=== PATIENT | male | born 1995 | race American Indian/Alaskan Native ===

== ENCOUNTER 2017-04-17 13:46 | Emergency (ER) | payer OTHER ==
[2017-04-17 15:04] VITALS: BP 112/93
--- NOTE | 2017-04-17 17:37 | XRay Report ---
FINAL REPORT PROCEDURE: XR KNEE 3V LT TECHNIQUE: Left knee, three views HISTORY: left knee injury COMPARISON: No prior studies are available for comparison. FINDINGS: On two views there is a 3 millimeter osseous density projecting over the medial aspect of the intercondylar notch, of uncertain chronicity. This may be an intra-articular body. No donor site is visible to suggest acute fracture fragment. No joint effusion. No evidence of joint dislocation IMPRESSION: 3 millimeter osseous density, described above may be related to a small intra-articular body. If there is concern for internal derangement, follow-up MRI could be obtained.
[2017-04-17] MEDS ORDERED: MOTRIN PO ONE (18:35)
[2017-04-17] MEDS ORDERED: MOTRIN ONE (18:36)
[2017-04-17] MEDS ORDERED: ZOFRAN ODT PO ONE (19:48)
[2017-04-17] MEDS ORDERED: ZOFRAN ODT ONE (19:50)
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
== END 2017-04-17 20:48 | disposition home or self-care (01) ==
LOC: ED 13:46
DX: S80.02XA Contusion of left knee, initial encounter (principal); J45.909 Unspecified asthma, uncomplicated; Z88.6 Allergy status to analgesic agent; Z88.8 Allergy status to other drugs, medicaments and biological substances; V43.52XA Car driver injured in collision with other type car in traffic accident, initial encounter; Y93.89 Activity, other specified; Y92.89 Other specified places as the place of occurrence of the external cause; Y99.8 Other external cause status
CPT/HCPCS: Q0162

== ENCOUNTER 2017-12-12 12:14 | Emergency (ER) | payer SELFPAY ==
[2017-12-12 12:24] VITALS: BP 128/74
--- NOTE | 2017-12-12 13:35 | Emergency Department Report ---
ED Lower Extremity HPI - General Chief Complaint: Extremity Injury, Lower Stated Complaint: KNEE PAIN Time Seen by Provider: 12/12/17 12:57 Source: patient Mode of arrival: Ambulatory Limitations: No Limitations - History of Present Illness Initial Comments: This is a 22-year-old male nontoxic, well nourished in appearance, no acute signs of distress presents to the ED with c/o of left knee pain x1 day. Patient stated that he was playing basketball and heard a pop sensation x2 of the knee. Patient stated has a history of similar episode and had an MRI done with a strain on meniscus. Patient currently is wearing a knee immobilizer and has crutches from previous injury. Patient denies any direct trauma or blows. Patient stated that he did not have any trauma to the head or any other extremities. Patient denies any joint redness, joint swelling, fever, chills, nausea, vomiting, chest pain or shortness breath. Patient denies abnormal or decreased gait. Patient stated allergies to percocet. Denies PMH. MD Complaint: knee injury -: days(s) (1) Injury: Knee: Left Place: street/outdoors Severity: mild Severity scale (0 -10): 8 Improves With: immobilization Worsens With: movement, palpation Associated Symptoms: swelling, able to partially bear weight, ambulatory. denies: snap/pop sensation, numbness, tingling, unable to bear weight - Related Data Previous Rx's Medication Instructions Recorded Last Taken Type Ibuprofen [Motrin] 800 mg PO Q8HR PRN #15 tablet 04/25/16 Unknown Rx Ibuprofen [Motrin 800 MG tab] 800 mg PO Q8H PRN #20 tablet 04/17/17 Unknown Rx Ibuprofen [Motrin] 600 mg PO Q8H PRN #30 tablet 12/12/17 Unknown Rx Allergies Allergy/AdvReac Type Severity Reaction Status Date / Time acetaminophen [From Tylenol] Allergy Itching Verified 06/20/14 14:08 codeine Allergy Itching Verified 06/20/14 14:08 ED Review of Systems ROS: Stated complaint: KNEE PAIN Other details as noted in HPI Constitutional: denies: chills, fever Eyes: denies: eye pain, eye discharge, vision change ENT: denies: ear pain, throat pain Respiratory: denies: cough, shortness of breath, wheezing Cardiovascular: denies: chest pain, palpitations Endocrine: no symptoms reported Gastrointestinal: denies: abdominal pain, nausea, diarrhea Genitourinary: denies: urgency, dysuria Musculoskeletal: arthralgia. denies: back pain, joint swelling Skin: denies: rash, lesions Neurological: denies: headache, weakness, paresthesias Psychiatric: denies: anxiety, depression Hematological/Lymphatic: denies: easy bleeding, easy bruising ED Past Medical Hx - Past Medical History Previous Medical History?: Yes Hx Asthma: Yes - Surgical History Past Surgical History?: No - Social History Smoking Status: Never Smoker Substance Use Type: None - Medications Home Medications: Home Medications Medication Instructions Recorded Confirmed Last Taken Type Ibuprofen [Motrin] 800 mg PO Q8HR PRN #15 tablet 04/25/16 Unknown Rx Ibuprofen [Motrin 800 MG tab] 800 mg PO Q8H PRN #20 tablet 04/17/17 Unknown Rx Ibuprofen [Motrin] 600 mg PO Q8H PRN #30 tablet 12/12/17 Unknown Rx ED Physical Exam - General Limitations: No Limitations General appearance: alert, in no apparent distress - Head Head exam: Present: atraumatic, normocephalic - Eye Eye exam: Present: normal appearance Pupils: Present: normal accommodation - ENT ENT exam: Present: normal exam, mucous membranes moist - Neck Neck exam: Present: normal inspection, full ROM - Respiratory Respiratory exam: Present: normal lung sounds bilaterally. Absent: respiratory distress - Cardiovascular Cardiovascular Exam: Present: regular rate, normal rhythm, normal heart sounds. Absent: systolic murmur, diastolic murmur, rubs, gallop - GI/Abdominal GI/Abdominal exam: Present: soft, normal bowel sounds - Rectal Rectal exam: Present: deferred - Extremities Exam Extremities exam: Present: normal inspection, full ROM, tenderness, normal capillary refill. Absent: pedal edema, joint swelling, calf tenderness - Expanded Lower Extremity Exam Left Hip exam: Present: normal inspection, full ROM Upper Leg exam: Present: normal inspection, full ROM Knee exam: Present: normal inspection, full ROM, tenderness, swelling, effusion , full knee extension. Absent: abrasion, laceration, ecchymosis, deformity, crepidus, dislocation, erythema, pain w/ pronation/supination, posterior draw sign, pain/laxity with valgus, pain/laxity with varus Lower Leg exam: Present: normal inspection, full ROM. Absent: tenderness, swelling, abrasion, laceration, ecchymosis, deformity, crepidus, dislocation, erythema, palpable cord, Janelle's sign Ankle exam: Present: normal inspection, full ROM Foot/Toe exam: Present: normal inspection, full ROM Neuro vascular tendon exam: Present: no vascular compromise. Absent: pulse deficit, abnormal cap refill, motor deficit, sensory deficit, tendon deficit, extremity cold to touch, pallor, abnormal 2-point discrimination, decreased fine /light touch, foot drop, peroneal nerve deficit, significant pain with passive ROM of distal joint Gait: Positive: observed and limited by pain - Back Exam Back exam: Present: normal inspection, full ROM - Neurological Exam Neurological exam: Present: alert, oriented X3, normal gait - Psychiatric Psychiatric exam: Present: normal affect, normal mood - Skin Skin exam: Present: warm, dry, intact, normal color. Absent: rash ED Course Vital Signs 12/12/17 12:19 Temperature 98.0 F Pulse Rate 84 Respiratory 18 Rate Blood Pressure 128/74 O2 Sat by Pulse 99 Oximetry - Reevaluation(s) Reevaluation #2: 12/12/17 13:54 Patient is speaking in full sentences with no signs of distress noted. ED Lower Extremity MDM - Medical Decision Making This is a 22-year-old male that presents with left knee strain. Patient is stable and was examined by me and Dr. Enamorado. I referred patient to an orthopedic doctor for further evaluation for possible MRI. X-ray has been obtained and dictated by the radiologist and report was faxed with joint effusion but no bone abnormalities. Patient is notified of the x-ray report with noted by the patient. Patient does have normal gait with no tenderness and no joint swelling. No ecchymosis. no joint redness or swelling. Not warm to touch. No signs of cellulites present. Patient has a knee immobilize and crutches. Patient was instructed to RICE therapy. Patient received Motrin for pain. Patient is discharged with Motrin. At time of discharge, the patient does not seem toxic or ill in appearance. No acute signs of distress noted. Patient agrees to discharge treatment plan of care. No further questions noted by the patient. Critical care attestation.: If time is entered above; I have spent that time in minutes in the direct care of this critically ill patient, excluding procedure time. ED Disposition Clinical Impression: Strain of left knee Qualifiers: Encounter type: initial encounter Qualified Code(s): S86.912A - Strain of unspecified muscle(s) and tendon(s) at lower leg level, left leg, initial encounter Disposition: TO HOME OR SELFCARE Is pt being admited?: No Does the pt Need Aspirin: No Condition: Stable Instructions: Knee Pain (ED), RICE Therapy (ED), Ibuprofen (By mouth) Additional Instructions: Follow-up with a orthopedic doctor in 3-5 days or if symptoms worsen and continue return to emergency room as soon as possible. Prescriptions: Ibuprofen [Motrin] 600 mg PO Q8H PRN #30 tablet PRN Reason: Pain Referrals: PRIMARY CARE, [Primary Care Provider] - 3-5 Days JOSE MIGUEL MCELROY MD [Staff Physician] - 3-5 Days [facility] [Outside] - 3-5 Days [facility] [Outside] - 3-5 Days Forms: Work/School Release Form(ED)
[2017-12-12] MEDS ORDERED: MOTRIN PO ONE (13:48)
--- NOTE | 2017-12-14 12:58 | XRay Report ---
LEFT KNEE, 3 views: History: Left knee pain. The bony architecture is intact without evidence of fracture or dislocation. A moderate joint effusion is suspected on the lateral image which extends to the suprapatellar bursa. IMPRESSION: Joint effusion. If internal derangement is suspected, MRI could be obtained.
== END 2017-12-12 14:25 | disposition home or self-care (01) ==
LOC: ED 12:14
DX: S86.912A Strain of unspecified muscle(s) and tendon(s) at lower leg level, left leg, initial encounter (principal); J45.909 Unspecified asthma, uncomplicated; Z88.8 Allergy status to other drugs, medicaments and biological substances; X58.XXXA Exposure to other specified factors, initial encounter; Y93.67 Activity, basketball; Y92.89 Other specified places as the place of occurrence of the external cause; Y99.8 Other external cause status
CPT/HCPCS: 99283

== ENCOUNTER 2018-12-13 11:14 | Emergency (ER) | payer OTHER ==
[2018-12-13 11:19] VITALS: BP 106/88
--- NOTE | 2018-12-13 11:48 | Emergency Department Report ---
Minor Respiratory - HPI Chief Complaint: Sore Throat Stated Complaint: FLU SX/SORE THROAT Time Seen by Provider: 12/13/18 11:44 Pain Location: Throat Severity: mild Minor Respiratory: Yes Sore Throat, Yes Able to Tolerate Fluids, No Rhinorrhea, No Ear Pain, No Cough, No Sick Contacts, No Hemoptysis, No Chest Pain, No Shortness of Breath, No Fever Other History: Patient is a 23-year-old male who comes to the ER complaining of a sore throat. He has no fever. ABCs are intact. Vital signs are stable. He states that he was seen at [facility] about a week ago and they gave him Mucinex but that just made his symptoms worse so he quit taking them. He has not seen a primary care physician. He denies shortness of breath or chest pain. He has a history of asthma when he was younger. He does not take any home medications at present. ED Review of Systems ROS: Stated complaint: FLU SX/SORE THROAT Other details as noted in HPI Comment: All other systems reviewed and negative ED Past Medical Hx - Past Medical History Previous Medical History?: Yes Hx Asthma: Yes - Surgical History Past Surgical History?: No - Family History Family history: no significant - Social History Smoking Status: Never Smoker - Medications Home Medications: Home Medications Medication Instructions Recorded Confirmed Last Taken Type Albuterol Sulfate [Proair 90 mcg IH QID PRN #1 aer.pow.[email or web address] 12/13/18 Unknown Rx Respiclick] Azithromycin [Zithromax Z-ANAHI] 250 mg PO DAILY #6 tablet 12/13/18 Unknown Rx Cetirizine HCl [ZyrTEC] 10 mg PO DAILY #30 capsule 12/13/18 Unknown Rx Fluticasone [Flonase] 1 spray NS QDAY #1 bottle 12/13/18 Unknown Rx predniSONE [Deltasone] 20 mg PO DAILY #5 tablet 12/13/18 Unknown Rx Minor Respiratory Exam - Exam General: Vital signs noted. No distress. Alert and acting appropriately. - Head Head exam: Present: atraumatic, normocephalic - Eye Eye exam: Present: normal appearance, EOMI. Absent: nystagmus - ENT ENT exam: Present: normal exam, normal orophraynx, mucous membranes moist, normal external ear exam - Neck Neck exam: Present: normal inspection, full ROM. Absent: tenderness, meningismus - Respiratory Respiratory exam: Present: normal lung sounds bilaterally. Absent: respiratory distress, wheezes, rales, rhonchi, stridor, chest wall tenderness, accessory muscle use, decreased breath sounds, prolonged expiratory - Cardiovascular Cardiovascular Exam: Present: regular rate, normal rhythm, normal heart sounds. Absent: bradycardia, tachycardia, irregular rhythm, systolic murmur, diastolic murmur, rubs, gallop - GI/Abdominal GI/Abdominal exam: Present: soft. Absent: distended, tenderness, guarding, rebound, rigid, pulsatile mass - Rectal Rectal exam: Present: deferred - Extremities Exam Extremities exam: Present: normal inspection, full ROM, other (2+ pulses noted in the bilateral upper extremities. 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 Absent: calf tenderness - Back Exam Back exam: Present: normal inspection, full ROM. Absent: tenderness, CVA tenderness (R), CVA tenderness (L), paraspinal tenderness, vertebral tenderness - Neurological Exam Neurological exam: Present: alert, oriented X3, normal gait, other (Extraocular movements intact. Tongue midline. No facial droop. Facial sensation intact to light touch in the V1, V2, V3 distribution bilaterally. 5 and 5 strength in 4 extremities.. Sensation is intact to light touch in 4 extremities.). Absent: motor sensory deficit - Psychiatric Psychiatric exam: normal affect and mood - Skin Skin exam: Present: warm, dry, intact, normal color. Absent: rash HEENT: Yes Pharyngeal Erythema, Yes Moist Mucous Membranes, No Pharyngeal Exudates, No Rhinorrhea, No Conjuctival Injection, No Frontal Tenderness, No Maxillary Tenderness Ear: Neither TM Bulge, Neither TM Erythema, Neither EAC Pain, Neither EAC Discharge Neck: Yes Supple, No Adenopathy Lungs: Yes Good Air Exchange, No Cough Heart: Yes Regular, No Murmur Abdomen: No Tenderness Skin: Yes Rash Neurologic: Alert and oriented, no deficits. Musculoskeletal: Unremarkable. ED Course Vital Signs 12/13/18 11:18 Temperature 97.6 F Pulse Rate 77 Respiratory 20 Rate Blood Pressure 106/88 O2 Sat by Pulse 99 Oximetry ED Medical Decision Making - Medical Decision Making VSS no fever or chills no night sweats stopped meds given at ER- states antibiotics nor prednisone was given to him Vital Signs 05/29/19 11:18 Temperature 97.6 F Pulse Rate 77 Respiratory 20 Rate Blood Pressure 106/88 O2 Sat by Pulse 99 Oximetry Critical care attestation.: If time is entered above; I have spent that time in minutes in the direct care of this critically ill patient, excluding procedure time. ED Disposition Clinical Impression: Asthma, acute, Sinusitis Disposition: [id number] TO HOME OR SELFCARE Is pt being admited?: No Does the pt Need Aspirin: No Condition: Stable Instructions: Asthma (ED) Additional Instructions: DIET TOLERATED MEDS ORDERED TODAY IN ER FOLLOW INSTRUCTIONS ON THE BOTTLE FOLLOW UP PCP WITHIN 48 HOURS TO ENSURE YOU ARE GETTING BETTER ACTIVITY TOLERATED MOTRIN OR TYLENOL FOR PAIN OR FEVER RETURN TO THE ER FOR WORSENING SYMPTOMS NOT RELIEVED BY YOUR MEDICATIONS. Prescriptions: predniSONE [Deltasone] 20 mg PO DAILY #5 tablet Fluticasone [Flonase] 1 spray NS QDAY #1 bottle Albuterol Sulfate [Proair Respiclick] 90 mcg IH QID PRN #1 aer.pow.ba PRN Reason: Wheezing Azithromycin [Zithromax Z-ANAHI] 250 mg PO DAILY #6 tablet Cetirizine HCl [ZyrTEC] 10 mg PO DAILY #30 capsule Referrals: CHIQUITA CARBAJAL MD [Primary Care Provider] - 3-5 Days Forms: Work/School Release Form(ED) Time of Disposition: 11:55
[2018-12-13] MEDS ORDERED: DELTASONE PO NR (12:00)
== END 2018-12-13 12:05 | disposition home or self-care (01) ==
LOC: ED 11:14
DX: J32.9 Chronic sinusitis, unspecified (principal); J45.909 Unspecified asthma, uncomplicated; Z88.6 Allergy status to analgesic agent; Z88.5 Allergy status to narcotic agent

== ENCOUNTER 2020-07-20 01:57 | Emergency (ER) | payer OTHER ==
[2020-07-20 02:19] VITALS: BP 148/95
[2020-07-20 03:28] LABS: Bilirubin,Urine NEG (Negative); Blood,Urine NEG (Negative); Color,Urine Yellow (Yellow); Mucus,Urine FEW /HPF; Protein,Urine <15 mg/dL mg/dL (Negative)
--- NOTE | 2020-07-20 03:29 | Emergency Department Report ---
ED Male HPI - General Chief complaint: Urogenital-Male Stated complaint: PAINFUL URINATING Source: patient Mode of arrival: Ambulatory Limitations: No Limitations - History of Present Illness Initial comments: Patient is a 25-year-old -[place] male with no past medical history presents to the ED with complaint of acute onset persistent urinary frequency and urgency for the last 12 hours. Patient also states that he experience a few episodes of dysuria. Patient states that his last unprotected sexual intercourse was about a week ago and that his sexual partner told him to come to the ED for STD testing because of a recent diagnosis of the same. Patient is unsure of what type of STD his sexual partner was treated for. Patient states that he initially went to an urgent care clinic and was empirically treated for chlamydia and gonorrhea 4 days ago. Patient states that he came to the ED for reevaluation and further testing. Patient however denies penile lesions or rashes, hematuria, testicular pain, scrotal pain and swelling, fever, chills, nausea, vomiting, diarrhea, abdominal pain or dizziness. MD Complaint: dysuria, other (Urinary frequency and urgency) -: Sudden, days(s) (12) Location: penis Radiation: none Severity: mild Severity scale (0 -10): 0 Quality: dull Consistency: intermittent Improves with: none Worsens with: urination denies other symptoms. denies: discharge, swelling, mass, rash, urinary retention, blood in urine, dysuria, fever, nausea/vomiting, incontinence - Related Data Sexually active: Yes Previous Rx's Medication Instructions Recorded Last Taken Type Albuterol Sulfate [Proair 90 mcg IH QID PRN #1 aer.pow.ba 12/13/18 Unknown Rx Respiclick] Azithromycin [Zithromax Z-ANAHI] 250 mg PO DAILY #6 tablet 12/13/18 Unknown Rx Cetirizine HCl [ZyrTEC] 10 mg PO DAILY #30 capsule 12/13/18 Unknown Rx Fluticasone [Flonase] 1 spray NS QDAY #1 bottle 12/13/18 Unknown Rx predniSONE [Deltasone] 20 mg PO DAILY #5 tablet 12/13/18 Unknown Rx Allergies Allergy/AdvReac Type Severity Reaction Status Date / Time acetaminophen [From Tylenol] Allergy Itching Verified 06/20/14 14:08 codeine Allergy Itching Verified 06/20/14 14:08 ED Review of Systems ROS: Stated complaint: PAINFUL URINATING Other details as noted in HPI Constitutional: denies: chills, fever Eyes: denies: eye pain, eye discharge, vision change ENT: denies: ear pain, throat pain Respiratory: denies: cough, shortness of breath, wheezing Cardiovascular: denies: chest pain, palpitations Endocrine: no symptoms reported Gastrointestinal: denies: abdominal pain, nausea, diarrhea Genitourinary: urgency, dysuria, frequency. denies: discharge, testicular pain, testicular mass Musculoskeletal: denies: back pain, joint swelling, arthralgia Skin: denies: rash, lesions Neurological: denies: headache, weakness, paresthesias Psychiatric: denies: anxiety, depression Hematological/Lymphatic: denies: easy bleeding, easy bruising ED Past Medical Hx - Past Medical History Previous Medical History?: Yes Hx Asthma: Yes - Surgical History Past Surgical History?: No - Social History Smoking Status: Never Smoker Substance Use Type: None - Medications Home Medications: Home Medications Medication Instructions Recorded Confirmed Last Taken Type Albuterol Sulfate [Proair 90 mcg IH QID PRN #1 aer.pow.ba 12/13/18 Unknown Rx Respiclick] Azithromycin [Zithromax Z-ANAHI] 250 mg PO DAILY #6 tablet 12/13/18 Unknown Rx Cetirizine HCl [ZyrTEC] 10 mg PO DAILY #30 capsule 12/13/18 Unknown Rx Fluticasone [Flonase] 1 spray NS QDAY #1 bottle 12/13/18 Unknown Rx predniSONE [Deltasone] 20 mg PO DAILY #5 tablet 12/13/18 Unknown Rx ED Physical Exam - General Limitations: No Limitations General appearance: alert, in no apparent distress - Head Head exam: Present: atraumatic, normocephalic, normal inspection - Eye Eye exam: Present: normal appearance, PERRL, EOMI Pupils: Present: normal accommodation - ENT ENT exam: Present: normal exam, normal orophraynx, mucous membranes moist, TM's normal bilaterally, normal external ear exam - Neck Neck exam: Present: normal inspection, full ROM - Respiratory Respiratory exam: Present: normal lung sounds bilaterally. Absent: respiratory distress, wheezes, rales, rhonchi, chest wall tenderness, accessory muscle use, decreased breath sounds, prolonged expiratory - Cardiovascular Cardiovascular Exam: Present: regular rate, normal rhythm, normal heart sounds. Absent: bradycardia, tachycardia, irregular rhythm, systolic murmur, diastolic murmur, rubs, gallop - GI/Abdominal GI/Abdominal exam: Present: soft, normal bowel sounds. 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 Absent: tenderness, CVA tenderness (R), CVA tenderness (L), muscle spasm, paraspinal tenderness, vertebral tenderness - Neurological Exam Neurological exam: Present: alert, oriented X3, CN II-XII intact, normal gait, reflexes normal - Psychiatric Psychiatric exam: Present: normal affect, normal mood - Skin Skin exam: Present: warm, dry, intact, normal color. Absent: rash ED Course Vital Signs 07/20/20 02:14 Pulse Rate 96 H Respiratory 18 Rate Blood Pressure 148/95 O2 Sat by Pulse 97 Oximetry ED Medical Decision Making - Medical Decision Making This is a 25-year-old -[place] male with no past medical history presents to the ED with complaint of acute onset persistent urinary frequency and urgency for the last 12 hours. Patient also states that he experience a few episodes of dysuria. Patient states that his last unprotected sexual i ntercourse was about a week ago and that his sexual partner told him to come to the ED for STD testing because of a recent diagnosis of the same. Patient is unsure of what type of STD his sexual partner was treated for. Patient states that he initially went to an urgent care clinic and was empirically treated for chlamydia and gonorrhea 4 days ago. Patient states that he came to the ED for reevaluation and further testing. In the ED, patient is alert and oriented x 3 and is in no acute distress. UA test was negative. Given the fact that the patient recently got treated empirically for Chlamydia and Gonorrhea, the patient was discharged home and advised to follow up with [facility] for further evaluation and STD testing including HIV and Syphilis. Patient was also advised to return to the ED immediately if symptoms get worse. - Differential Diagnosis UTI; trichomonas, STD, urethritis, gonorrhea, chlamydia, Critical care attestation.: If time is entered above; I have spent that time in minutes in the direct care of this critically ill patient, excluding procedure time. ED Disposition Clinical Impression: STD exposure, Encounter for well adult exam without abnormal findings Disposition: TO HOME OR SELFCARE Is pt being admited?: No Does the pt Need Aspirin: No Condition: Stable Instructions: Safe Sex Additional Instructions: FOLLOW UP WITH YOUR PRIMARY CARE PHYSICIAN NEEDED. FOLLOW UP WITH [facility] FOR FURTHER STD TESTING INCLUDING HIV AND SYPHILIS. OBSERVE SAFE SEXUAL PRACTICES. RETURN TO THE ED IMMEDIATELY IF SYMPTOMS GET WORSE Referrals: [facility] [Outside] - 3-5 Days Time of Disposition: 05:20 Print Language: MALAY
== END 2020-07-20 05:58 | disposition home or self-care (01) ==
LOC: ED 01:57
DX: R30.0 Dysuria (principal); R35.0 Frequency of micturition; R39.15 Urgency of urination; Z20.2 Contact with and (suspected) exposure to infections with a predominantly sexual mode of transmission; Z00.00 Encounter for general adult medical examination without abnormal findings; J45.909 Unspecified asthma, uncomplicated; Z79.2 Long term (current) use of antibiotics; Z79.899 Other long term (current) drug therapy; Z88.8 Allergy status to other drugs, medicaments and biological substances
CPT/HCPCS: 81001

== ENCOUNTER 2022-03-02 09:30 | Emergency (ER) | payer SELFPAY ==
--- NOTE | 2022-03-02 13:15 | Emergency Department Report ---
Minor Respiratory - HPI Chief Complaint: Upper Respiratory Infection Stated Complaint: CHEST TIGHTNESS/THROWING UP MUCUS Time Seen by Provider: 03/02/22 12:56 Pain Location: Chest Severity: mild Minor Respiratory: Yes Sore Throat, Yes Able to Tolerate Fluids, No Rhinorrhea, No Ear Pain, No Cough, No Sick Contacts, No Hemoptysis, No Chest Pain, No Shortness of Breath, No Fever Other History: 26 yo comes to ER with sinus headache, mucous and cough. no fever. no chills. no purulent sputum. hx of asthma. just finished "meds" for sinus infection. Requesting work note. no cp. no sob. non ill appearing on exam ED Review of Systems ROS: Stated complaint: CHEST TIGHTNESS/THROWING UP MUCUS Other details as noted in HPI Comment: All other systems reviewed and negative ED Past Medical Hx - Past Medical History Previous Medical History?: Yes Hx Asthma: Yes - Surgical History Past Surgical History?: No - Family History Family history: no significant - Social History Smoking Status: Never Smoker Substance Use Type: None - Medications Home Medications: Home Medications Medication Instructions Recorded Confirmed Last Taken Type Albuterol Mdi (or & Nicu Only) 2 puff IH QID PRN #1 inhalation 03/02/22 Unknown Rx [ProAir HFA Inhaler] Cetirizine HCl [ZyrTEC] 10 mg PO DAILY #30 capsule 03/02/22 Unknown Rx Fluticasone [Flonase] 1 spray NS QDAY #1 bottle 03/02/22 Unknown Rx predniSONE [Deltasone] 20 mg PO DAILY #5 tablet 03/02/22 Unknown Rx Minor Respiratory Exam - Exam General: Vital signs noted. No distress. Alert and acting appropriately. HEENT: Yes Pharyngeal Erythema, Yes Moist Mucous Membranes, No Pharyngeal Exudates, No Rhinorrhea, No Conjuctival Injection, No Frontal Tenderness, No Maxillary Tenderness Ear: Neither TM Bulge, Neither TM Erythema, Neither EAC Pain, Neither EAC Discharge Neck: Yes Supple, No Adenopathy Lungs: Yes Good Air Exchange, No Wheezes, No Ronchi, No Stridor, No Cough, No Labored Respirations, No Retractions, No Use of Accessory Muscles, No Other Abnormal Lung Sounds Heart: Yes Regular, No Murmur Abdomen: Yes Normal Bowel Sounds, No Tenderness, No Peritoneal Signs Skin: No Rash, No Edema Neurologic: Alert and oriented, no deficits. Musculoskeletal: Unremarkable. ED Medical Decision Making - Medical Decision Making Vital Signs 03/02/22 14:28 Temperature 98.2 F Pulse Rate 62 Respiratory 16 Rate Blood Pressure 110/72 [Left] O2 Sat by Pulse 98 Oximetry no wheezing no fever no chills no sob no cp no purulent sputum requesting work note taking po dc home with dc plan of care including diet, meds, activity and follow up. he verbalizes understanding of plan of care. - Differential Diagnosis asthma ae/ uri Critical care attestation.: If time is entered above; I have spent that time in minutes in the direct care of this critically ill patient, excluding procedure time. ED Disposition Clinical Impression: Asthma with acute exacerbation Disposition: HOME / SELF CARE / HOMELESS Is pt being admited?: No Does the pt Need Aspirin: No Condition: Stable Instructions: Viral Respiratory Infection Additional Instructions: meds as ordered follow up with pcp referral below Prescriptions: predniSONE [Deltasone] 20 mg PO DAILY #5 tablet Fluticasone [Flonase] 1 spray NS QDAY #1 bottle Albuterol Mdi (or & Nicu Only) [ProAir HFA Inhaler] 2 puff IH QID PRN #1 inhalation PRN Reason: Shortness Of Breath Cetirizine HCl [ZyrTEC] 10 mg PO DAILY #30 capsule Referrals: CHIQUITA CARBAJAL MD [Primary Care Provider] - 3-5 Days Forms: Work/School Release Form(ED) Time of Disposition: 13:25
[2022-03-02 14:29] VITALS: BP 110/72
== END 2022-03-02 14:29 | disposition home or self-care (01) ==
LOC: ED 09:30
DX: J45.901 Unspecified asthma with (acute) exacerbation (principal); Z98.890 Other specified postprocedural states; Z88.8 Allergy status to other drugs, medicaments and biological substances; Z88.5 Allergy status to narcotic agent
CPT/HCPCS: 99282